=== PATIENT | female | born 1940 | race Caucasian/White ===

== ENCOUNTER 2016-11-24 16:39 | Emergency (ER) | payer MEDICARE ==
[~2016-11-24] VITALS: Ht 152.4 cm; Wt 59.1 kg
[~2016-11-24 16:39] MED LIST: ALPR.25T PO; AMIT10TA6 PO; CALC-784 PO; CHOL500011 PO; CLON0.5T62 PO; CLONAZEPAM0.5 M1 PO; DSS250 PO; DUR12 TD; FUR80 PO; GABA300C PO; GABA600T PO; HEPA500016 IJ; LEVO125T2 PO; LIDO30AD TOP; MULT-1018 PO; POTA10TA12 PO; ROB500 PO; SEN PO; TEMA30CA PO; TYL325 PO; [UNRECOGNIZED DRUG - CODE] PO; [UNRECOGNIZED DRUG - CODE] PO; [UNRECOGNIZED DRUG - CODE] PO; [UNRECOGNIZED DRUG - CODE] TOP; [UNRECOGNIZED DRUG - CODE] TOP
[2016-11-24 17:09] VITALS: BP 120/76; PULSE 95; RESP 16; O2SAT 94
--- NOTE | 2016-11-24 19:19 | ED.REPORT ---
HPI-Extremity Problem Lower Date of Service Nov 24, 2016 ED Provider: Dr. Joe Asher MD A 76 year old female with a history of chronic back pain, cervical stenosis, hypertension, previous LLE DVT, CHF, and recurrent UTI's presents to the ED with unilateral left lower extremity swelling that began one month ago. The pain and swelling in her leg has become progressively worse since initial onset. She recently had an LLE ultrasound on 11/07 for her symptoms that was negative for DVT. She is currently expressing concern because her current symptoms are similar to her previous DVT. She denies any SOB or chest pain. Nursing Notes Stated Complaint: ANKLE SWELLING Chief Complaint: Extremity Trauma Nursing Notes Reviewed: Yes Allergies: Coded Allergies: Penicillins (Verified Allergy, Severe, RASH OVER ENTIRE BODY- HOSPITALIZATION, 09/04/12) codeine (Verified Allergy, Severe, MAKES ABD SWELL AND CAUSES PAIN, ) morphine (Verified Allergy, Severe, 11/13/12) oxycodone (Verified Allergy, Severe, HIVES-HOSPITALIZATION, 09/04/12) Replaces PERCODAN Oxycodone Terephthalate (Verified Allergy, Unknown, 08/09/16) aspirin (Verified Allergy, Unknown, 08/09/16) oxycodone HCl (Verified Allergy, Unknown, 08/09/16) hydromorphone HCl (Verified Adverse Reaction, Intermediate, diarrhea, ) promethazine (Verified Adverse Reaction, Mild, STINGS IV SITE, 02/02/09) General Time Seen by MD: 19:19 Chief Complaint Leg injury left (LLE Swelling) Hx Obtained From: Patient Arrived By: Walk-in Onset Occurred: More than a week ago... (1 month) Symptom Duration: Since onset Location: : Leg left Quality: Painful Severity: Current: Moderate Severity: Maximum: Moderate Associated with: Reports: Swelling, Denies: Chest pain Pertinent Negative: Pt denies other symptoms Recent Healthcare: No recent doctor visit, No recent hospitalization Past Medical History Past Medical History 1. Recent episode of arachnoiditis. 2. Chronic back pain with multiple lumbar surgeries. 3. Cervical stenosis history. 4. Chronic pain syndrome. 5. Hypertension. 6. Hypothyroidism. 7. Osteoporosis. 8. Insomnia. 9. History of acute hypoxemic respiratory failure attributed to acute pulmonary emboli diagnosed by confirmation of thromboembolic disease based on DVT bilaterally. Ultrasound of the left lower extremity showed DVT. V/Q scan showed intermediate probability for pulmonary embolus at that time. 10. History of left ventricular diastolic congestive heart failure, acute at that point in time. Echocardiogram October 13, 2012 showed LVEF of 55% to 60% without segmental wall motion defects, showed diastolic dysfunction. Normal valves. 11. History of urinary tract infection with pansensitive E. coli. 12. History of hypomagnesemia. Past Surgical History Multiple previous back surgeries - April 1970, April 1971 and April 1975. Family History Non-contributory Smoking History Unknown if Ever Smoker Social History Other Social History: Good social support, Local resident Ambulatory Status Independent Review of Systems Musculoskeletal: Reports: Extremity pain (LLE), Extremity swelling (LLE) Complete sys rev & neg: except as marked. Respiratory: Denies: Shortness of breath Cardiovascular: Denies: Chest pain Physical Exam Initial Vital Signs Vital Signs (First) Date Time Temp Pulse Resp B/P Pulse Ox O2 Delivery O2 Flow Rate FiO2 11/24/16 17:09 36.4 95 16 120/76 94 Room Air Initial VS: Reviewed Head / Eyes: Atraumatic, Normocephalic, PERRL Neck: Supple, Non-tender, Full range of motion Upper Extremities: Vascular intact, Neuro intact, No swelling, No tenderness Skin: Warm, Dry, No cyanosis Neurologic: Alert, Oriented, Nonfocal Psychiatric: Mood/affect normal, Behavior normal, Normal thought content Lower Extremity / Pelvis / MS: Atraumatic, Neurologic intact, Vascular intact Left Leg / Calf: Positive: L calf > R calf LLE pitting edema Ankle / Foot: Neurologic intact, Vascular intact LLE Edema present Cardiovascular: Heart rate NL, Regular rhythm, Heart sounds NL Lower Ext Edema: Positive: Pitting (LLE edema) Asymmetric calf size (L>R) Interpretation & Diagnostics Lab Results Interpretation Result Diagram: 11/24/16193911/24/161939 Test 11/24/16 19:40 White Blood Count 7.8th/mm3 (3.8-10.1) Red Blood Count 3.58mil/mm3 (3.90-5.20) Hemoglobin 11.7g/dL (12.0-15.6) Hematocrit 36.4% (35.0-46.0) Mean Corpuscular Volume 101.7fL (81-100) Mean Corpuscular Hemoglobin 32.7pg (27.0-35.0) Mean Corpuscular Hemoglobin Concent 32.1% (32.0-37.0) Red Cell Distribution Width 11.7% (12.3-15.4) Platelet Count 229bil/L (150-400) Neutrophils (%) (Auto) 53.4% (40-74) Lymphocytes (%) (Auto) 36.8% (14-46) Monocytes (%) (Auto) 6.8% (4-12) Eosinophils (%) (Auto) 2.6% (0-5) Basophils (%) (Auto) 0.3% (0-3) D-Dimer < 0.50mg/L FEU (<0.50) Sodium Level 137mEq/L (134-144) Potassium Level 4.5mEq/L (3.5-5.2) Chloride Level 99mEq/L (97-108) Carbon Dioxide Level 24mmol/L (18-29) Blood Urea Nitrogen 40mg/dL (8-27) Creatinine 0.96mg/dL (0.57-1.00) Estimat Glomerular Filtration Rate 81mL/min (>59) Glucose Level 112mg/dL (60-99) Calcium Level 9.9mg/dL (8.5-10.1) Total Bilirubin 0.3mg/dL (0.0-1.2) Aspartate Amino Transf (AST/SGOT) 16U/L (0-50) Alanine Aminotransferase (ALT/SGPT) 10U/L (0-32) Alkaline Phosphatase 77U/L (25-165) Total Protein 7.6g/dL (6.4-8.4) Albumin 4.1g/dL (3.4-5.0) Hold Eagle Top Tube Received (Received) US Soft Tissue/Musculoskeletal IMPRESSION: No sonographic evidence for left lower extremity deep venous thrombosis. Dictated by: Eliu Schulz M.D. on 11/24/2016 at 20:59 Exam Interpreted by: Radiologist Re-Eval/Medical Decision Med Decision/Clinical Course DVT ruled out by ultrasound. Acute arterial insufficiency ruled out with hand- held Doppler and allowed triphasic sounding flow in the posterior tibial and at least biphasic sounds in the dorsalis pedis. That only that she has a warm foot. I think she does have mild cellulitis. There is erythema around her medial and lateral malleoli with a small blister. I still think arterial insufficiency although not acute limb threatening at this time is in the differential. I talked her about performing an ultrasound for the arterial flow or possible CT [place]. She states she does not wish to do that. She felt better after the dose of Demerol. She states that her doctor is working up with her on this. And she will follow-up. She did promise me she would return if she had any sudden severe pain or any of the classic signs of arterial insufficiency: Pallor, pain, pulselessness or cold limb. She denies any of these. She is discharged in stable condition. Re-Evaluation/Progress #1: Time of Eval: 19:49 Patient Status: Condition improved Re-Evaluation/Progress Note: Patient condition is re-evaluated. symptoms have improved following treatment. She is informed of her current results and the intended treatment plan. All of the patient's questions about her likely diagnosis and disposition are addressed. Patient is given strict return precautions. She understands and agree with the plan. Re-Evaluation/Progress #2: Time of Eval: 21:23 Patient Status: Condition improved Re-Evaluation/Progress Note: Arterial US Performed Audible triphasic sounding flow DP and PT pulses present Patient heard pulses Counseled Regarding: Diagnosis, Lab results, Need for follow-up, When/why to return to ED Discharge & Departure Impression: Primary Impression: Edema of left lower extremity Additional Impression: Cellulitis Site of cellulitis: extremity Site of cellulitis of extremity: lower extremity Laterality: left Qualified Code: L03.116 - Cellulitis of left lower limb Disposition: Home Discharge Condition All VS Reviewed: Yes Condition: Stable Patient Instructions: Cellulitis (ED), Edema (ED) Additional Instructions: Thank you for trusting us with your care this evening. Your emergency department evaluation today including examination, lab work, and ultrasound are reassuring that there is no emergent cause for concern at this time and there is no evidence of deep vein thrombosis at this time. However, a clear cause of your edema was not identified so I highly recommend that you schedule a follow-up appointment with your primary care physician tomorrow for a recheck. Wear compression socks to help relieve your edema. Elevate the foot to help relieve the swelling. Take Doxycycline twice daily. You received an injection of Demerol this evening. Do not take any other sedative medications this evening. Do not drive. Take 1-2 Tylenol or ibuprofen every 6-8 hours as needed for pain. Please return to the emergency department for any new or worsening conditions including any fevers, chills, nausea, vomiting, increased swelling, chest pain, shortness of breath, lightheadedness, weakness or any other concerning symptoms. Return for the arterial study as recommended if you experience any other these symptoms. Referrals: Sharmila Lee MD (PCP) Scribe Attestation Portions of this note were transcribed by José Miguel Izaguirre. I, Dr. Asher personally performed the history, physical exam and medical decision-making; I reviewed and confirmed the accuracy of the information in the transcribed note. copies to: Sharmila Lee MD, Todd P DO Nov 24, 2016 19:19 JOSÉ MIGUEL IZAGUIRRE Nov 24, 2016 19:28
[2016-11-24 19:49] LABS: BASOPHILS % (AUTO) 0.3 % (0-3); EOSINOPHILS % (AUTO) 2.6 % (0-5); MONOCYTES % (AUTO) 6.8 % (4-12); Mean Corpuscular Hemoglobin 32.7 pg (27.0-35.0); Mean Corpuscular Volume 101.7 fL (81-100); NEUTROPHILS % (AUTO) 53.4 % (40-74); Platelet Count 229 bil/L (150-400)
--- NOTE | 2016-11-24 21:01 | DRSVH ---
PROCEDURE: US VEINOUS LEG DUPLEX UNILATERAL, LEFT INDICATIONS: 76 year-old female with left leg swelling. TECHNIQUE: Real-time imaging, as well as color and pulse Doppler interrogation, were performed of the lower extr emity deep veins from the inguinal ligament to the popliteal fossa. COMPARISON: [facility] Ultrasound, US, US VENOUS LEG DPLX UNI LT, 11/07/2016, 14:53. FINDINGS: The deep veins are normally compressible, and free of intraluminal thrombus. Color and pu lse Doppler demonstrate normal phasic intraluminal flow. There is normal augmentation response to di stal compression maneuver. IMPRESSION: No sonographic evidence for left lower extremity deep venous thrombosis. Dictated by: Eliu Schulz M.D. on 11/24/2016 at 20:59 Approved by: Eliu Schulz M.D. on 11/24/2016 at 21:00
[2016-11-24 21:33] VITALS: BP 140/85; PULSE 90; RESP 16; O2SAT 96
[2016-11-24 22:44] VITALS: BP 145/85; PULSE 80; RESP 17; O2SAT 95
== END 2016-11-24 22:15 | disposition home or self-care (01) ==
LOC: SED 16:39
DX: R60.9 Edema, unspecified (principal); L03.116 Cellulitis of left lower limb; I11.0 Hypertensive heart disease with heart failure; I50.9 Heart failure, unspecified; E03.9 Hypothyroidism, unspecified; Z86.711 Personal history of pulmonary embolism; Z88.0 Allergy status to penicillin; Z88.5 Allergy status to narcotic agent; Z88.8 Allergy status to other drugs, medicaments and biological substances
CPT/HCPCS: 36415; 80053; 85025; 85378; 93970; 96372; 99285; J2175